=== PATIENT | female | born 2000 | race Caucasian/White ===

== ENCOUNTER 2018-01-24 10:50 | Emergency (ER) | payer SELFPAY ==
[~2018-01-24] VITALS: Ht 165.1 cm; Wt 57.0 kg
[2018-01-24 11:22] VITALS: BP 113/70
[2018-01-24] MEDS ORDERED: DIPHENHYDRAMINE 50MG CAPSULE PO ONE (15:00)
[2018-01-24] MEDS ORDERED: PREDNISONE 20MG TABLET PO ONE (15:00)
== END 2018-01-24 15:12 | disposition home or self-care (01) ==
LOC: ER 10:50
DX: L50.9 Urticaria, unspecified (principal)
CPT/HCPCS: 99283; J7512; Q0163

== ENCOUNTER 2018-01-31 17:22 | Emergency (ER) | payer OTHER ==
[~2018-01-31] VITALS: Ht 157.5 cm; Wt 57.0 kg
[2018-01-31] MEDS ORDERED: P50 PO (18:08)
[2018-01-31] MEDS ORDERED: FAMO-133 PO (18:08)
[2018-01-31] MEDS ORDERED: DIPH25TA23 PO (18:08)
[2018-01-31] MEDS ORDERED: FAMOTIDINE 20MG/2ML VIAL IV ONE (20:15)
[2018-01-31 20:45] VITALS: BP 122/88
== END 2018-01-31 21:30 | disposition home or self-care (01) ==
LOC: ER 18:18
DX: L50.9 Urticaria, unspecified (principal)
CPT/HCPCS: 96374; 99284; J3490; Z7610